=== PATIENT | female | born 1965 | race African-American/Black ===

== ENCOUNTER 2017-12-20 05:26 | Emergency (ER) | payer OTHER ==
[~2017-12-20] VITALS: Ht 154.9 cm; Wt 54.4 kg
[~2017-12-20 05:26] MED LIST: BENADRYL50 MG; DOXEPIN HCL50 MG; FIORICET TABLET1 TAB; PROZAC10 M1 PO; VISTARIL25 MG PO; XANAX XR2 MG PO
== END 2017-12-20 10:39 | disposition home or self-care (01) ==
LOC: ER 05:26
DX: G43.109 Migraine with aura, not intractable, without status migrainosus (principal)

== ENCOUNTER 2018-01-04 23:48 | Emergency (ER) | payer OTHER ==
[~2018-01-04] VITALS: Ht 152.4 cm; Wt 61.7 kg
== END 2018-01-05 11:42 | disposition home or self-care (01) ==
LOC: ER 23:48
DX: R53.83 Other fatigue (principal)

== ENCOUNTER 2018-01-30 19:43 | Emergency (ER) | payer OTHER ==
[~2018-01-30] VITALS: Ht 154.9 cm; Wt 55.8 kg
== END 2018-01-30 21:52 | disposition home or self-care (01) ==
LOC: ER 19:43
DX: S40.012A Contusion of left shoulder, initial encounter (principal); S00.83XA Contusion of other part of head, initial encounter; W18.39XA Other fall on same level, initial encounter; Y93.89 Activity, other specified; Y92.59 Other trade areas as the place of occurrence of the external cause; Y99.8 Other external cause status